=== PATIENT | female | born 1975 | race African-American/Black ===

== ENCOUNTER 2016-08-16 13:52 | Inpatient (IN) | payer MEDICAID ==
[~2016-08-16] VITALS: Ht 160 cm; Wt 59.0 kg
[2016-08-16] MEDS ORDERED: SPIRONOLACTONE1 EACH ORAL (14:23)
[2016-08-16] MEDS ORDERED: ATORVASTATIN CA40 MG ORAL (14:23)
[2016-08-16] MEDS ORDERED: BUPROPION HCL150 M3 ORAL (14:28)
[2016-08-16] MEDS ORDERED: BUPROPION HCL100 MG ORAL (14:28)
[2016-08-16] MEDS ORDERED: LASIX20 M1 ORAL (14:28)
[2016-08-16] MEDS ORDERED: LISINOPRIL20 MG ORAL (14:38)
[2016-08-16] MEDS ORDERED: CARVEDILOL3.125 MG ORAL (14:39)
[2016-08-16] MEDS ORDERED: ISOSORBIDE MONO30 M1 PO (14:39)
[2016-08-16] MEDS ORDERED: PANTOPRAZOLE SO40 MG ORAL (14:39)
[2016-08-16] MEDS ORDERED: WARFARIN SODIUM5 MG ORAL (14:39)
[2016-08-16 14:45] VITALS: BP 124/87
[2016-08-16 14:57] LABS: BASOPHILS % (AUTO) 1.4 % (0.0-2.0); EOSINOPHILS % (AUTO) 0.1 % (0.0-3.0); LYMPHOCYTES % (AUTO) 26.7 % (20.0-45.0); MEAN CORPUSCULAR HEMOGLOBIN 27.6 PG (27.0-31.0); MEAN CORPUSCULAR HGB CONC 31.8 G/DL (32.0-36.0); MEAN CORPUSCULAR VOLUME 87 FL (80-99); MEAN PLATELET VOLUME 8.1 FL (6.5-10.1); NEUTROPHILS % (AUTO) 62.9 % (45.0-75.0); PLATELET COUNT 177 K/UL (150-450); RED BLOOD COUNT 4.37 M/UL (4.20-5.40); RED CELL DISTRIBUTION WIDTH 18.3 % (11.6-14.8); WHITE BLOOD COUNT 4.9 K/UL (4.8-10.8)
[2016-08-16 14:58] LABS: INR 1.7 (0.9-1.1); PROTHROMBIN TIME 17.4 SEC (9.30-11.50)
[2016-08-16 15:07] LABS: ALANINE AMINOTRANSFERASE 39 U/L (3-33); ALBUMIN/GLOBULIN RATIO 1.1 (1.0-2.7); ANION GAP 21 (5-15); ASPARTATE AMINO TRANSFERASE 24 U/L (5-40); CALCIUM 9.2 mg/dL (8.6-10.2); CARBON DIOXIDE 21 mEQ/L (20-30); CHLORIDE 97 mEQ/L (98-107); CREATININE 1.1 mg/dL (0.5-0.9); HEMOLYSIS 4; LIPASE 22 U/L (< 60); SODIUM 139 mEQ/L (135-145); TOTAL PROTEIN 7.2 g/dL (6.6-8.7)
--- NOTE | 2016-08-16 15:09 | Emergency Room Report ---
History of Present Illness General Chief Complaint: Abdominal Pain Source: Patient, EMS Present Illness HPI 41 YO F presents with intemittent sharp, michelle-umbilical, non-radiating pain, 7/ 10 for 3 days. Associated with nausea, relieved with vomiting. No fever/chills , diarrhea, urinary complaints. hasnt been able to take coumadin or other meds since. Denies history of kidney stones. Denies chest pain, SOB, pleuritic chest pain. Allergies: Coded Allergies: PENICILLINS (Verified Allergy, Unknown, 08/16/16) Patient History Past Medical History: other - Blood clots in the "heart, neck, abdomen" Past Surgical History: none Pertinent Family History: none Social History: Denies: alcohol use, drug use, smoking Last Menstrual Period: 08/10/2015 Now: No Immunizations: UTD Reviewed Nursing Documentation: PMH: Agreed, PSxH: Agreed Nursing Documentation-PMH Past Medical History: No History, Except For Hx Hypertension: Yes Review of Systems All Other Systems: negative except mentioned in HPI Physical Exam Vital Signs Date Time Temp Pulse Resp B/P Pulse Ox O2 Delivery O2 Flow Rate FiO2 08/16/16 13:57 98.2 66 16 148/92 99 Room Air Sp02 EP Interpretation: reviewed, abnormal General Appearance: normal inspection, well appearing, no apparent distress, alert, GCS 15, non-toxic Head: normocephalic, atraumatic Eyes: bilateral eye EOMI, bilateral eye PERRL ENT: normal ENT inspection, hearing grossly normal, normal voice Neck: normal inspection, full range of motion, supple, no bony tend Respiratory: normal inspection, lungs clear, normal breath sounds, no rhonchi, no respiratory distress, no retraction, no accessory muscle use, no wheezing Cardiovascular #1: regular rate, rhythm, no edema, tachycardia Gastrointestinal: normal inspection, normal bowel sounds, non tender, soft, no guarding, no hernia Genitourinary: no CVA tenderness Musculoskeletal: normal inspection, back normal, normal range of motion, Camilo' s Sign negative Neurologic: normal inspection, alert, oriented x3, responsive, quality assistant III-XII nml as tested, motor strength/tone normal, speech normal Psychiatric: normal inspection, judgement/insight normal, mood/affect normal Skin: normal inspection, normal color, no rash Medical Decision Making Diagnostic Impression: Primary Impression: Abdominal pain Qualified Codes: R10.33 - Periumbilical pain Additional Impressions: ROSY (acute kidney injury) Elevated troponin ER Course Labs: Normal H&H. No leuks. Elevated total bili, AST. Elevated trop 0.43. Serum Cr 1.1 UA: Patient has not given urine INR 1.7 ECG is sinus tachy with PVCs CTAP: no acute abd/pelvic pathology. Incidental right ovarian mass vs fibroid. A: ?NSTEMI. ECG is Tachy with PVCs. No ischemia. Question NSTEMI given 3 days of symptoms, elevated serumCr. Will need serial trop. No chest pain or SOB Endorsed to Dr Delcid for tele admission at 5pm EKG Diagnostic Results Rate: tachycardiac, other - isolated TWI in v6 Rhythm: NSR ST Segments: no acute changes ASA given to the pt in ED: Yes Rhythm Strip Diag. Results EP Interpretation: yes Rate: 110 Rhythm: NSR, no ectopy, other - PVCs Chest X-Ray Diagnostic Results EP Interpretation: Yes Findings: no consolidation, no effusion, no pneumothorax, no acute cardiopulmonary disease Number of Views: 1 Last Vital Signs Date Time Temp Pulse Resp B/P Pulse Ox O2 Delivery O2 Flow Rate FiO2 08/16/16 13:57 98.2 66 16 148/92 99 Room Air Status: improved Disposition: ADMITTED INPATIENT Condition: Serious ANGELITA MIMS M.D. Aug 16, 2016 15:09
[2016-08-16 15:13] LABS: GLOMERULAR FILTRATION RATE > 60 mL/min (>60)
[2016-08-16] MEDS ORDERED: Famotidine 20 MG/ 2ML VIAL IVP ONE (15:15)
[2016-08-16 15:31] LABS: BILIRUBIN,DIRECT 0.3 mg/dL (0.1-0.3)
[2016-08-16 16:06] LABS: TROPONIN I 0.43 ng/mL (<=0.30)
[2016-08-16] MEDS: Morphine Sulfate 2mg/ml Inj IVP ONE ×2 (16:15→16:43)
[2016-08-16 17:20] VITALS: BP 130/96
[2016-08-16] MEDS ORDERED: Ketorolac 30mg Inj IV PRN (18:00)
[2016-08-16] MEDS ORDERED: DuoNeb 0.5-3(2.5)mg/3ml neb HHN PRN (18:00)
[2016-08-16] MEDS ORDERED: Enalaprilat 2.5mg/2ml Inj IV PRN (18:00)
[2016-08-16] MEDS ORDERED: Miralax 17gm pkt ORAL PRN (18:00)
[2016-08-16] MEDS ORDERED: Diltiazem 25mg/5ml IV PRN (18:00)
[2016-08-16] MEDS ORDERED: Nitroglycerin Subl 0.4mg tab (Bottle Of 25) SL PRN (18:15)
[2016-08-16] MEDS: Morphine Sulfate 2mg/ml Inj IVP PRN (19:50)
[2016-08-16 20:00] VITALS: BP 120/88
[2016-08-16] MEDS: Heparin 5000 units/ml inj SUBQ SCH (21:00)
[2016-08-16] MEDS: Atorvastatin 80mg tab ORAL SCH (21:27)
[2016-08-16 21:47] LABS: TROPONIN I 0.51 ng/mL (<=0.30)
[2016-08-17] VITALS: BP 114/76
[2016-08-17 02:16] LABS: APPEARANCE,URINE CLEAR; KETONES,URINE NEGATIVE (NEGATIVE); LEUKOCYTE ESTERASE ,URINE 1+ (NEGATIVE); NITRITE,URINE NEGATIVE (NEGATIVE); PH,URINE 5 (4.5-8.0); PROTEIN,URINE 3+ (NEGATIVE); UROBILINOGEN,URINE 1 MG/DL (0.0-1.0)
[2016-08-17 02:58] LABS: BACTERIA,URINE FEW /HPF; SQUAMOUS EPITHELIAL CELL,UR MODERATE /LPF (NONE/OCC)
[2016-08-17 03:02] LABS: ICTOTEST NEGATIVE
[2016-08-17 04:00] VITALS: BP 108/63
[2016-08-17 07:38] LABS: BASOPHILS % (AUTO) 1.2 % (0.0-2.0); LYMPHOCYTES % (AUTO) 45.1 % (20.0-45.0); MEAN CORPUSCULAR HEMOGLOBIN 26.6 PG (27.0-31.0); MEAN CORPUSCULAR HGB CONC 30.9 G/DL (32.0-36.0); MEAN CORPUSCULAR VOLUME 86 FL (80-99); MEAN PLATELET VOLUME 8.7 FL (6.5-10.1); MONOCYTES % (AUTO) 7.3 % (1.0-10.0); NEUTROPHILS % (AUTO) 45.4 % (45.0-75.0); PLATELET COUNT 160 K/UL (150-450); RED BLOOD COUNT 4.11 M/UL (4.20-5.40); RED CELL DISTRIBUTION WIDTH 18.4 % (11.6-14.8); WHITE BLOOD COUNT 3.9 K/UL (4.8-10.8)
[2016-08-17] MEDS: Morphine Sulfate 2mg/ml Inj IVP PRN (07:46)
[2016-08-17 07:56] LABS: INR 1.4 (0.9-1.1); PROTHROMBIN TIME 14.7 SEC (9.30-11.50)
[2016-08-17 08:13] LABS: CRP QUANT 1.6 mg/dL (< 0.5)
[2016-08-17 08:18] LABS: THYROID STIMULATING HORMONE 0.882 uIU/mL (0.300-4.500)
[2016-08-17 08:23] VITALS: BP 108/85
--- NOTE | 2016-08-17 08:30 | Diagnostic Imaging Report ---
Clinical Indication: Intermittent sharp periumbilical nonradiating pain for 3 days, associated with nausea and vomiting Technique: No oral contrast utilized, per emergency room physician request IV administration nonionic contrast. Venous phase spiral acquisition obtained through the abdomen and pelvis. Multiplanar reconstructions were generated. Total dose length product 703 mGycm. CTDIvol(s) 15 mGy Comparison: None Findings: There is a mass with central calcification in the right adnexal region. This measures 6 x 3.6 cm, is solid. This appears to be connected to the right side of the uterine fundus and likely represents an exophytic uterine fibroid, although an ovarian mass as etiology of this finding cannot completely ruled out. It is uncertain whether a separate ovary is seen on the right. The appendix is normal. There is no evidence of diverticulosis or diverticulitis. No small bowel distention. No free or loculated intraperitoneal air or fluid. The distal esophagus, stomach, duodenum are unremarkable. The liver, gallbladder, bile ducts, pancreas, spleen, are unremarkable. There are bilateral intrarenal calyceal calculi. One on the right measures 2 mm diameter. One on the left measures 5 mm diameter. No evidence of hydronephrosis or hydroureter. There is a small exophytic subcentimeter low-attenuation lesion in the upper pole of the right kidney which is too small to characterize. The bladder is unremarkable. There is a small right pleural effusion. The heart is enlarged. Impression: Small right pleural effusion. 6 x 3.6 cm mass in the right adnexal region. Possibly but not definitively an exophytic uterine fibroid, but could represent a solid ovarian mass.. Further evaluation with pelvic and endovaginal sonography is recommended No acute abdominal or pelvic abnormality Bilateral nonobstructive intrarenal calculi. Negative for evidence of hydronephrosis or obstructive uropathy Cardiomegaly The CT scanner at [facility] is accredited by the [employer] and the scans are performed using protocols designed to limit radiation exposure to as low as reasonably achievable to attain images of sufficient resolution adequate for diagnostic evaluation.
[2016-08-17] MEDS: Aspirin Baby 81mg ORAL SCH (08:43)
[2016-08-17] MEDS: Lisinopril 10mg tab ORAL SCH (08:43)
[2016-08-17] MEDS: Heparin 5000 units/ml inj SUBQ SCH (08:46)
[2016-08-17 08:57] LABS: TROPONIN I 0.54 ng/mL (<=0.30)
[2016-08-17] MEDS ORDERED: Imdur 30mg tab ORAL SCH (09:00)
--- NOTE | 2016-08-17 10:58 | Diagnostic Imaging Report ---
Indication: PAIN Technique: One view of the chest Comparison: none Findings: Heart is enlarged. The lungs and pleural spaces are clear. Impression: Cardiomegaly. No acute process
[2016-08-17 11:39] VITALS: BP 100/65
--- NOTE | 2016-08-17 13:12 | History and Physical ---
History of Present Illness General Date patient seen: Aug 17, 2016 Reason for Hospitalization: Abdominal Pain Present Illness HPI 41 year old female with hx of cardiomyopathy presented with intermittent sharp, michelle-umbilical, non-radiating pain for 3 days. Associated with nausea, relieved with vomiting. No fever/chills, diarrhea, urinary complaints. she hasn't been able to take coumadin or other meds since. Allergies: Coded Allergies: PENICILLINS (Verified Allergy, Unknown, 08/16/16) Medication History Scheduled Atorvastatin Calcium* (Atorvastatin Calcium*), 80 MG ORAL BEDTIME, (Reported) Bupropion Hcl* (Bupropion Hcl*), 100 MG ORAL THREE TIMES A DAY, (Reported) Bupropion Hcl* (Bupropion Hcl Sr*), 150 MG ORAL DAILY, (Reported) Carvedilol* (Carvedilol*), 3.125 MG ORAL EVERY 12 HOURS, (Reported) Furosemide* (Lasix*), 20 MG ORAL DAILY, (Reported) Isosorbide Mononitrate (Isosorbide Mononitrate Er), 30 MG PO DAILY, (Reported) Lisinopril (Lisinopril*), 10 MG ORAL DAILY, (Reported) Pantoprazole* (Pantoprazole*), 40 MG ORAL DAILY, (Reported) Spironolact/Hydrochlorothiazid (Spironolactone-Hctz 25-25 Tab), 1 TAB ORAL DAILY , (Reported) Warfarin Sod* (Warfarin Sod*), 5 MG ORAL DAILY, (Reported) Patient History Healthcare decision maker pt alert and oriented Resuscitation status Full Code Advanced Directive on File No Past Medical/Surgical History Past Medical/Surgical History: (1) Cardiomyopathy Review of Systems All Other Systems: negative except mentioned in HPI Physical Exam General Appearance: cachetic HEENT: normocephalic, atraumatic Neck: non-tender, normal alignment Respiratory/Chest: chest wall non-tender, lungs clear Breasts: no masses Abdomen: normal bowel sounds, non tender Genitourinary/Rectal: normal genital exam, normal rectal exam Last 24 Hour Vital Signs Date Time Temp Pulse Resp B/P Pulse Ox O2 Delivery O2 Flow Rate FiO2 08/17/16 11:39 98.1 79 18 100/65 97 Room Air 08/17/16 08:43 108/85 08/17/16 08:43 108/85 08/17/16 08:43 87 108/85 08/17/16 08:23 98.2 87 18 108/85 96 Room Air 08/17/16 04:00 80 08/17/16 04:00 98.2 20 108/63 100 Room Air 08/17/16 00:00 95 08/17/16 00:00 97.5 98 20 114/76 100 Room Air 08/16/16 21:27 101 120/88 08/16/16 20:00 101 08/16/16 20:00 108 08/16/16 20:00 97.9 101 20 120/88 100 Room Air 08/16/16 17:20 56 18 130/96 100 Room Air 08/16/16 17:01 115 16 125/93 100 Room Air 08/16/16 15:31 108 124/87 08/16/16 14:45 108 18 124/87 95 Room Air 08/16/16 13:57 98.2 66 16 148/92 99 Room Air Intake and Output 08/16/16 08/17/16 19:00 07:00 Intake Total 0 ml 360 ml Balance 0 ml 360 ml Intake Oral 0 ml 120 ml Other 240 ml Laboratory Tests Test 08/16/16 14:30 08/16/16 21:00 08/17/16 01:00 08/17/16 06:40 White Blood Count 4.9 K/UL (4.8-10.8) 3.9 K/UL (4.8-10.8) L Red Blood Count 4.37 M/UL (4.20-5.40) 4.11 M/UL (4.20-5.40) L Hemoglobin 12.1 G/DL (12.0-16.0) 10.9 G/DL (12.0-16.0) L Hematocrit 37.9 % (37.0-47.0) 35.4 % (37.0-47.0) L Mean Corpuscular Volume 87 FL (80-99) 86 FL (80-99) Mean Corpuscular Hemoglobin 27.6 PG (27.0-31.0) 26.6 PG (27.0-31.0) L Mean Corpuscular Hemoglobin Concent 31.8 G/DL (32.0-36.0) L 30.9 G/DL (32.0-36.0) L Red Cell Distribution Width 18.3 % (11.6-14.8) H 18.4 % (11.6-14.8) H Platelet Count 177 K/UL (150-450) 160 K/UL (150-450) Mean Platelet Volume 8.1 FL (6.5-10.1) 8.7 FL (6.5-10.1) Neutrophils (%) (Auto) 62.9 % (45.0-75.0) 45.4 % (45.0-75.0) Lymphocytes (%) (Auto) 26.7 % (20.0-45.0) 45.1 % (20.0-45.0) H Monocytes (%) (Auto) 9.0 % (1.0-10.0) 7.3 % (1.0-10.0) Eosinophils (%) (Auto) 0.1 % (0.0-3.0) 1.0 % (0.0-3.0) Basophils (%) (Auto) 1.4 % (0.0-2.0) 1.2 % (0.0-2.0) Prothrombin Time 17.4 SEC (9.30-11.50) H 14.7 SEC (9.30-11.50) H Prothromb Time International Ratio 1.7 (0.9-1.1) H 1.4 (0.9-1.1) H Activated Partial Thromboplast Time 27 SEC (23-33) 28 SEC (23-33) Sodium Level 139 mEQ/L (135-145) Potassium Level 4.0 mEQ/L (3.4-4.9) Chloride Level 97 mEQ/L (98-107) L Carbon Dioxide Level 21 mEQ/L (20-30) Anion Gap 21 (5-15) H Blood Urea Nitrogen 21 mg/dL (7-23) Creatinine 1.1 mg/dL (0.5-0.9) H Estimat Glomerular Filtration Rate > 60 mL/min (>60) Glucose Level 119 mg/dL (74-106) H Calcium Level 9.2 mg/dL (8.6-10.2) Total Bilirubin 1.5 mg/dL (0.0-1.2) H Direct Bilirubin 0.3 mg/dL (0.1-0.3) Aspartate Amino Transf (AST/SGOT) 24 U/L (5-40) Alanine Aminotransferase (ALT/SGPT) 39 U/L (3-33) H Alkaline Phosphatase 126 U/L (35-104) H Troponin I 0.43 ng/mL (<=0.30) *H 0.51 ng/mL (<=0.30) *H 0.54 ng/mL (<=0.30) *H Total Protein 7.2 g/dL (6.6-8.7) Albumin 3.9 g/dL (3.5-5.2) Globulin 3.3 g/dL Albumin/Globulin Ratio 1.1 (1.0-2.7) Lipase 22 U/L (< 60) Urine Color Kellie Urine Appearance Clear Urine pH 5 (4.5-8.0) Urine Specific [place] 1.020 (1.005-1.035) Urine Protein 3+ (NEGATIVE) H Urine Glucose (UA) Negative (NEGATIVE) Urine Ketones Negative (NEGATIVE) Urine Occult Blood 4+ (NEGATIVE) H Urine Nitrite Negative (NEGATIVE) Urine Bilirubin Negative (NEGATIVE) Urine Ictotest Negative Urine Urobilinogen 1 MG/DL (0.0-1.0) H Urine Leukocyte Esterase 1+ (NEGATIVE) H Urine RBC 10-15 /HPF (0 - 2) H Urine WBC 5-10 /HPF (0 - 2) H Urine Squamous Epithelial Cells Moderate /LPF (NONE/OCC) H Urine Bacteria Few /HPF (NONE) Urine HCG, Qualitative Negative C-Reactive Protein, Quantitative 1.6 mg/dL (< 0.5) H Triglycerides Level 70 mg/dL (< 150) Cholesterol Level 151 mg/dL (< 200) LDL Cholesterol 107 mg/dL (60-99) H HDL Cholesterol 30 mg/dL (> 60) Cholesterol/HDL Ratio 5.0 (3.3-4.4) H Thyroid Stimulating Hormone (TSH) 0.882 uIU/mL (0.300-4.500) Height (Feet): 5 Height (Inches): 3.00 Weight (Pounds): 130 Medications Current Medications Medications (Trade) Dose Ordered Sig/Frantz Route PRN Reason Start Time Stop Time Status Last Admin Dose Admin Acetaminophen (Tylenol) 650 mg Q4H PRN ORAL T>100.5 08/16/16 18:00 09/15/16 17:59 Albuterol/ Ipratropium (DuoNeb 0.5-3(2.5)mg/3ml) 3 ml Q4H PRN HHN Shortness of Breath 08/16/16 18:00 08/21/16 17:59 Aspirin (ASA) 162 mg DAILY ORAL 08/17/16 09:00 09/16/16 08:59 08/17/16 08:43 Atorvastatin Calcium (Lipitor) 80 mg BEDTIME ORAL 08/16/16 21:00 09/15/16 20:59 08/16/16 21:27 Bupropion HCl (Wellbutrin) 100 mg THREE TIMES A DAY ORAL 08/16/16 20:00 09/15/16 19:59 08/17/16 08:43 Carvedilol (Coreg) 3.125 mg EVERY 12 HOURS ORAL 08/16/16 21:00 09/15/16 20:59 08/17/16 08:43 Diltiazem HCl (Cardizem) 10 mg EVERY HOUR PRN IV heart rate more than 120 08/16/16 18:00 09/15/16 17:59 Enalaprilat (Vasotec) 2.5 mg Q6H PRN IV sbp more than 160 08/16/16 18:00 09/15/16 17:59 Heparin Sodium (Porcine) (Heparin 5000 units/ml) 5,000 units EVERY 12 HOURS SUBQ 08/16/16 21:00 09/15/16 20:59 Isosorbide Mononitrate (Imdur) 30 mg DAILY ORAL 08/17/16 09:00 09/16/16 08:59 08/17/16 08:43 Lisinopril (Zestril) 10 mg DAILY ORAL 08/17/16 09:00 09/16/16 08:59 08/17/16 08:43 Morphine Sulfate (Morphine Sulfate) 2 mg Q4H PRN IVP Severe Pain (Pain Scale 7-10) 08/16/16 18:00 08/23/16 17:59 08/17/16 07:46 Nitroglycerin (Ntg) 0.4 mg Q5MIN X 3 DOSES PRN SL Prn Chest Pain 08/16/16 18:15 09/15/16 18:14 Ondansetron HCl (Zofran) 4 mg Q6H PRN IVP Nausea & Vomiting 08/16/16 18:00 09/15/16 17:59 Pantoprazole (Protonix) 40 mg DAILY ORAL 08/17/16 09:00 09/16/16 08:59 08/17/16 08:43 Polyethylene Glycol (Miralax) 17 gm DAILYPRN PRN ORAL Constipation 08/16/16 18:00 09/15/16 17:59 Temazepam (Restoril) 15 mg HSPRN PRN ORAL Insomnia 08/16/16 21:00 08/23/16 20:59 Assessment/Plan Problem List: (1) Abdominal pain ICD Codes: R10.9 - Unspecified abdominal pain SNOMED: 59217545 Qualifiers: Qualified Codes: R10.33 - Periumbilical pain (2) Cardiomyopathy ICD Codes: I42.9 - Cardiomyopathy, unspecified SNOMED: 07199010 (3) Elevated troponin ICD Codes: R79.89 - Other specified abnormal findings of blood chemistry SNOMED: 135176286, 904383065 (4) ROSY (acute kidney injury) ICD Codes: N17.9 - Acute kidney failure, unspecified SNOMED: 65304506 Assessment/Plan 2decho serial ekg troponin mass on CT abdomen needs further work up. will send for tumor markers. ADITI ANDERSON Aug 17, 2016 13:12
--- NOTE | 2016-08-17 13:53 | GI Initial Consult Note ---
History of Present Illness General Date patient seen: Aug 17, 2016 Time patient seen: 10:00 Reason for Hospitalization: Abdominal Pain Referring physician: ADITI LEIJA Reason for Consultation: ABDOMINAL PAIN Present Illness HPI 41 YO F presents with intemittent sharp, michelle-umbilical, non-radiating pain, 7/ 10 for 3 days. Associated with nausea, relieved with vomiting. No fever/chills , diarrhea, urinary complaints. hasnt been able to take coumadin or other meds since. Denies history of kidney stones. Denies chest pain, SOB, pleuritic chest pain. GI CONSULT: HPI as noted above. GI consulted for lower abdominal pain. Pt seen on floor, awake A&Ox4 NAD with no active s/sx of N/V. Pt tolerating regular diet. She presents today with anemia, and abnormal LFTs. APCT shows no acute abdominal or pelvic abnormality, see full report below. Service Date: 08/16/16 Procedure: CT Abdomen Pelvis w/Contrast Clinical Indication: Intermittent sharp periumbilical nonradiating pain for 3 days, associated with nausea and vomiting Findings: There is a mass with central calcification in the right adnexal region. This measures 6 x 3.6 cm, is solid. This appears to be connected to the right side of the uterine fundus and likely represents an exophytic uterine fibroid, although an ovarian mass as etiology of this finding cannot completely ruled out. It is uncertain whether a separate ovary is seen on the right. The appendix is normal. There is no evidence of diverticulosis or diverticulitis. No small bowel distention. No free or loculated intraperitoneal air or fluid. The distal esophagus, stomach, duodenum are unremarkable. The liver, gallbladder, bile ducts, pancreas, spleen, are unremarkable. There are bilateral intrarenal calyceal calculi. One on the right measures 2 mm diameter. One on the left measures 5 mm diameter. No evidence of hydronephrosis or hydroureter. There is a small exophytic subcentimeter low-attenuation lesion in the upper pole of the right kidney which is too small to characterize. The bladder is unremarkable. There is a small right pleural effusion. The heart is enlarged. Impression: Small right pleural effusion. 6 x 3.6 cm mass in the right adnexal region. Possibly but not definitively an exophytic uterine fibroid, but could represent a solid ovarian mass.. Further evaluation with pelvic and endovaginal sonography is recommended No acute abdominal or pelvic abnormality Bilateral nonobstructive intrarenal calculi. Negative for evidence of hydronephrosis or obstructive uropathy Cardiomegaly Home Meds Reported Medications Pantoprazole* (PANTOPRAZOLE*) 40 Mg Tablet.dr, 40 MG ORAL DAILY, TAB 08/16/16 Carvedilol* (CARVEDILOL*) 3.125 Mg Tablet, 3.125 MG ORAL EVERY 12 HOURS, TAB 08/16/16 Isosorbide Mononitrate (ISOSORBIDE MONONITRATE ER) 30 Mg Tab.er.24h, 30 MG PO DAILY, TAB 08/16/16 Warfarin Sod* (WARFARIN SOD*) 5 Mg Tablet, 5 MG ORAL DAILY, TAB 08/16/16 Lisinopril (LISINOPRIL*) 20 Mg Tablet, 10 MG ORAL DAILY, TAB 08/16/16 Bupropion Hcl* (BUPROPION HCL SR*) 150 Mg Tablet.er, 150 MG ORAL DAILY, TAB 08/16/16 Bupropion Hcl* (BUPROPION HCL*) 100 Mg Tablet, 100 MG ORAL THREE TIMES A DAY, TAB 08/16/16 Furosemide* (LASIX*) 20 Mg Tablet, 20 MG ORAL DAILY, TAB 08/16/16 Spironolact/Hydrochlorothiazid (SPIRONOLACTONE-HCTZ 25-25 TAB) 1 Each Tablet, 1 TAB ORAL DAILY, TAB 08/16/16 Atorvastatin Calcium* (ATORVASTATIN CALCIUM*) 40 Mg Tablet, 80 MG ORAL BEDTIME, TAB 08/16/16 Allergies: Coded Allergies: PENICILLINS (Verified Allergy, Unknown, 08/16/16) Patient History PMH Narrative Past Medical History: other - Blood clots in the "heart, neck, abdomen" Past Surgical History: none Pertinent Family History: none Social History: Denies: alcohol use, drug use, smoking Last Menstrual Period: 08/10/2015 Now: No Immunizations: UTD Reviewed Nursing Documentation: PMH: Agreed, PSxH: Agreed Nursing Documentation-PMH Past Medical History: No History, Except For Hx Hypertension: Yes Social History: Denies: alcohol use, drug use, other, smoking Review of Systems All Other Systems: negative except mentioned in HPI Physical Exam Vital Signs Date Time Temp Pulse Resp B/P Pulse Ox O2 Delivery O2 Flow Rate FiO2 08/16/16 13:57 98.2 66 16 148/92 99 Room Air Sp02 EP Interpretation: reviewed Labs Laboratory Tests Test 08/16/16 14:30 08/16/16 21:00 08/17/16 01:00 08/17/16 06:40 White Blood Count 4.9 K/UL (4.8-10.8) 3.9 K/UL (4.8-10.8) L Red Blood Count 4.37 M/UL (4.20-5.40) 4.11 M/UL (4.20-5.40) L Hemoglobin 12.1 G/DL (12.0-16.0) 10.9 G/DL (12.0-16.0) L Hematocrit 37.9 % (37.0-47.0) 35.4 % (37.0-47.0) L Mean Corpuscular Volume 87 FL (80-99) 86 FL (80-99) Mean Corpuscular Hemoglobin 27.6 PG (27.0-31.0) 26.6 PG (27.0-31.0) L Mean Corpuscular Hemoglobin Concent 31.8 G/DL (32.0-36.0) L 30.9 G/DL (32.0-36.0) L Red Cell Distribution Width 18.3 % (11.6-14.8) H 18.4 % (11.6-14.8) H Platelet Count 177 K/UL (150-450) 160 K/UL (150-450) Mean Platelet Volume 8.1 FL (6.5-10.1) 8.7 FL (6.5-10.1) Neutrophils (%) (Auto) 62.9 % (45.0-75.0) 45.4 % (45.0-75.0) Lymphocytes (%) (Auto) 26.7 % (20.0-45.0) 45.1 % (20.0-45.0) H Monocytes (%) (Auto) 9.0 % (1.0-10.0) 7.3 % (1.0-10.0) Eosinophils (%) (Auto) 0.1 % (0.0-3.0) 1.0 % (0.0-3.0) Basophils (%) (Auto) 1.4 % (0.0-2.0) 1.2 % (0.0-2.0) Prothrombin Time 17.4 SEC (9.30-11.50) H 14.7 SEC (9.30-11.50) H Prothromb Time International Ratio 1.7 (0.9-1.1) H 1.4 (0.9-1.1) H Activated Partial Thromboplast Time 27 SEC (23-33) 28 SEC (23-33) Sodium Level 139 mEQ/L (135-145) Potassium Level 4.0 mEQ/L (3.4-4.9) Chloride Level 97 mEQ/L (98-107) L Carbon Dioxide Level 21 mEQ/L (20-30) Anion Gap 21 (5-15) H Blood Urea Nitrogen 21 mg/dL (7-23) Creatinine 1.1 mg/dL (0.5-0.9) H Estimat Glomerular Filtration Rate > 60 mL/min (>60) Glucose Level 119 mg/dL (74-106) H Calcium Level 9.2 mg/dL (8.6-10.2) Total Bilirubin 1.5 mg/dL (0.0-1.2) H Direct Bilirubin 0.3 mg/dL (0.1-0.3) Aspartate Amino Transf (AST/SGOT) 24 U/L (5-40) Alanine Aminotransferase (ALT/SGPT) 39 U/L (3-33) H Alkaline Phosphatase 126 U/L (35-104) H Troponin I 0.43 ng/mL (<=0.30) *H 0.51 ng/mL (<=0.30) *H 0.54 ng/mL (<=0.30) *H Total Protein 7.2 g/dL (6.6-8.7) Albumin 3.9 g/dL (3.5-5.2) Globulin 3.3 g/dL Albumin/Globulin Ratio 1.1 (1.0-2.7) Lipase 22 U/L (< 60) Urine Color Kellie Urine Appearance Clear Urine pH 5 (4.5-8.0) Urine Specific [place] 1.020 (1.005-1.035) Urine Protein 3+ (NEGATIVE) H Urine Glucose (UA) Negative (NEGATIVE) Urine Ketones Negative (NEGATIVE) Urine Occult Blood 4+ (NEGATIVE) H Urine Nitrite Negative (NEGATIVE) Urine Bilirubin Negative (NEGATIVE) Urine Ictotest Negative Urine Urobilinogen 1 MG/DL (0.0-1.0) H Urine Leukocyte Esterase 1+ (NEGATIVE) H Urine RBC 10-15 /HPF (0 - 2) H Urine WBC 5-10 /HPF (0 - 2) H Urine Squamous Epithelial Cells Moderate /LPF (NONE/OCC) H Urine Bacteria Few /HPF (NONE) Urine HCG, Qualitative Negative C-Reactive Protein, Quantitative 1.6 mg/dL (< 0.5) H Triglycerides Level 70 mg/dL (< 150) Cholesterol Level 151 mg/dL (< 200) LDL Cholesterol 107 mg/dL (60-99) H HDL Cholesterol 30 mg/dL (> 60) Cholesterol/HDL Ratio 5.0 (3.3-4.4) H CA 15-3 Antigen Pending CA 19-9 Antigen 9.40 U/mL (< 37) CA 27.29 Pending CA 125 Antigen Pending Thyroid Stimulating Hormone (TSH) 0.882 uIU/mL (0.300-4.500) General Appearance: well appearing, no apparent distress, alert Head: normocephalic EENT: PERRL/EOMI, TMs normal Neck: normal inspection, full range of motion, supple Respiratory: normal inspection, normal breath sounds, no respiratory distress Cardiovascular: normal rate Gastrointestinal: normal inspection, non tender, soft Rectal: deferred Musculoskeletal: normal inspection, back normal Neurologic: normal inspection, alert, oriented x3, responsive Psychiatric: normal inspection, judgement/insight normal, memory normal Skin: normal inspection, normal color, no rash, warm/dry Lymphatic: normal inspection, no adenopathy Current Medications Current Medications Medications (Trade) Dose Ordered Sig/Frantz Route PRN Reason Start Time Stop Time Status Last Admin Dose Admin Acetaminophen (Tylenol) 650 mg Q4H PRN ORAL T>100.5 08/16/16 18:00 09/15/16 17:59 Albuterol/ Ipratropium (DuoNeb 0.5-3(2.5)mg/3ml) 3 ml Q4H PRN HHN Shortness of Breath 08/16/16 18:00 08/21/16 17:59 Aspirin (ASA) 162 mg DAILY ORAL 08/17/16 09:00 09/16/16 08:59 08/17/16 08:43 Atorvastatin Calcium (Lipitor) 80 mg BEDTIME ORAL 08/16/16 21:00 09/15/16 20:59 08/16/16 21:27 Bupropion HCl (Wellbutrin) 100 mg THREE TIMES A DAY ORAL 08/16/16 20:00 09/15/16 19:59 08/17/16 13:25 Carvedilol (Coreg) 3.125 mg EVERY 12 HOURS ORAL 08/16/16 21:00 09/15/16 20:59 08/17/16 08:43 Diltiazem HCl (Cardizem) 10 mg EVERY HOUR PRN IV heart rate more than 120 08/16/16 18:00 09/15/16 17:59 Enalaprilat (Vasotec) 2.5 mg Q6H PRN IV sbp more than 160 08/16/16 18:00 09/15/16 17:59 Isosorbide Mononitrate (Imdur) 30 mg DAILY ORAL 08/17/16 09:00 09/16/16 08:59 08/17/16 08:43 Lisinopril (Zestril) 10 mg DAILY ORAL 08/17/16 09:00 09/16/16 08:59 08/17/16 08:43 Morphine Sulfate (Morphine Sulfate) 2 mg Q4H PRN IVP Severe Pain (Pain Scale 7-10) 08/16/16 18:00 08/23/16 17:59 08/17/16 07:46 Nitroglycerin (Ntg) 0.4 mg Q5MIN X 3 DOSES PRN SL Prn Chest Pain 08/16/16 18:15 09/15/16 18:14 Ondansetron HCl (Zofran) 4 mg Q6H PRN IVP Nausea & Vomiting 08/16/16 18:00 09/15/16 17:59 08/17/16 13:25 Pantoprazole (Protonix) 40 mg DAILY ORAL 08/17/16 09:00 09/16/16 08:59 08/17/16 08:43 Polyethylene Glycol (Miralax) 17 gm DAILYPRN PRN ORAL Constipation 08/16/16 18:00 09/15/16 17:59 Temazepam (Restoril) 15 mg HSPRN PRN ORAL Insomnia 08/16/16 21:00 08/23/16 20:59 Warfarin Sodium (Coumadin per pharmacy) 1 ea DAILY PRN MISC Per rx protocol 08/17/16 13:15 09/16/16 13:14 UNV GI: Plan Problems: (1) Anemia (2) LFTs abnormal (3) Elevated troponin (4) Abdominal pain Plan elevated troponin >> will require cardiac clearance prior any GI proceduers APCT reviewed >> No acute abdominal or pelvic abnormality, see full report. 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 Gauthier. Thank you for referring this patient, we will follow. Theresa Reynolds N.P. Aug 17, 2016 13:53
[2016-08-17 16:13] VITALS: BP 106/69
[2016-08-17] MEDS ORDERED: Warfarin Sodium 7.5mg ORAL ONE (17:00)
--- NOTE | 2016-08-17 19:12 | Cardiology Progress Note ---
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 [facility] dc she got 8 mg but the dcd her with mg she never fu with her pmd as instructed to get inr checked i hae recommneded that hs mix that darryl whe nshe get out of [place] hsotpial lasix acei bb [id number] Objective Last 24 Hour Vital Signs Date Time Temp Pulse Resp B/P Pulse Ox O2 Delivery O2 Flow Rate FiO2 08/17/16 16:13 97.0 86 18 106/69 99 Room Air 08/17/16 12:00 81 08/17/16 11:39 98.1 79 18 100/65 97 Room Air 08/17/16 08:43 108/85 08/17/16 08:43 108/85 08/17/16 08:43 87 108/85 08/17/16 08:23 98.2 87 18 108/85 96 Room Air 08/17/16 08:00 96 08/17/16 04:00 80 08/17/16 04:00 98.2 20 108/63 100 Room Air 08/17/16 00:00 95 08/17/16 00:00 97.5 98 20 114/76 100 Room Air 08/16/16 21:27 101 120/88 08/16/16 20:00 101 08/16/16 20:00 108 08/16/16 20:00 97.9 101 20 120/88 100 Room Air Intake and Output 08/16/16 08/17/16 19:00 07:00 Intake Total 0 ml 360 ml Balance 0 ml 360 ml Intake Oral 0 ml 120 ml Other 240 ml Laboratory Tests Test 08/16/16 21:00 08/17/16 01:00 08/17/16 06:40 Troponin I 0.51 ng/mL (<=0.30) *H 0.54 ng/mL (<=0.30) *H Urine Color Kellie Urine Appearance Clear Urine pH 5 (4.5-8.0) Urine Specific [place] 1.020 (1.005-1.035) Urine Protein 3+ (NEGATIVE) H Urine Glucose (UA) Negative (NEGATIVE) Urine Ketones Negative (NEGATIVE) Urine Occult Blood 4+ (NEGATIVE) H Urine Nitrite Negative (NEGATIVE) Urine Bilirubin Negative (NEGATIVE) Urine Ictotest Negative Urine Urobilinogen 1 MG/DL (0.0-1.0) H Urine Leukocyte Esterase 1+ (NEGATIVE) H Urine RBC 10-15 /HPF (0 - 2) H Urine WBC 5-10 /HPF (0 - 2) H Urine Squamous Epithelial Cells Moderate /LPF (NONE/OCC) H Urine Bacteria Few /HPF (NONE) Urine HCG, Qualitative Negative White Blood Count 3.9 K/UL (4.8-10.8) L Red Blood Count 4.11 M/UL (4.20-5.40) L Hemoglobin 10.9 G/DL (12.0-16.0) L Hematocrit 35.4 % (37.0-47.0) L Mean Corpuscular Volume 86 FL (80-99) Mean Corpuscular Hemoglobin 26.6 PG (27.0-31.0) L Mean Corpuscular Hemoglobin Concent 30.9 G/DL (32.0-36.0) L Red Cell Distribution Width 18.4 % (11.6-14.8) H Platelet Count 160 K/UL (150-450) Mean Platelet Volume 8.7 FL (6.5-10.1) Neutrophils (%) (Auto) 45.4 % (45.0-75.0) Lymphocytes (%) (Auto) 45.1 % (20.0-45.0) H Monocytes (%) (Auto) 7.3 % (1.0-10.0) Eosinophils (%) (Auto) 1.0 % (0.0-3.0) Basophils (%) (Auto) 1.2 % (0.0-2.0) Prothrombin Time 14.7 SEC (9.30-11.50) H Prothromb Time International Ratio 1.4 (0.9-1.1) H Activated Partial Thromboplast Time 28 SEC (23-33) C-Reactive Protein, Quantitative 1.6 mg/dL (< 0.5) H Triglycerides Level 70 mg/dL (< 150) Cholesterol Level 151 mg/dL (< 200) LDL Cholesterol 107 mg/dL (60-99) H HDL Cholesterol 30 mg/dL (> 60) Cholesterol/HDL Ratio 5.0 (3.3-4.4) H CA 15-3 Antigen Pending CA 19-9 Antigen 9.40 U/mL (< 37) CA 27.29 Pending CA 125 Antigen Pending Thyroid Stimulating Hormone (TSH) 0.882 uIU/mL (0.300-4.500) JOAN BARRY Aug 17, 2016 19:12
[2016-08-17] MEDS ORDERED: Enoxaparin 60mg Inj SUBQ SCH (19:15)
[2016-08-17] MEDS ORDERED: Heparin 5000 units/ml inj IV ONE (19:30)
[2016-08-17] MEDS ORDERED: Heparin 25,000u/D5W 500ml 500 ML IV SCH (19:45)
[2016-08-17 19:52] LABS: BASOPHILS % (AUTO) 1.1 % (0.0-2.0); EOSINOPHILS % (AUTO) 1.4 % (0.0-3.0); LYMPHOCYTES % (AUTO) 42.6 % (20.0-45.0); MEAN CORPUSCULAR HEMOGLOBIN 27.9 PG (27.0-31.0); MEAN CORPUSCULAR HGB CONC 31.8 G/DL (32.0-36.0); MEAN CORPUSCULAR VOLUME 88 FL (80-99); MEAN PLATELET VOLUME 7.5 FL (6.5-10.1); NEUTROPHILS % (AUTO) 47.9 % (45.0-75.0); PLATELET COUNT 155 K/UL (150-450); RED BLOOD COUNT 3.84 M/UL (4.20-5.40); WHITE BLOOD COUNT 4.1 K/UL (4.8-10.8)
[2016-08-17] MEDS: Atorvastatin 80mg tab ORAL SCH (19:57)
[2016-08-17] MEDS: Spironolactone 25mg tab ORAL SCH (19:57)
[2016-08-17 20:00] VITALS: BP 101/68
[2016-08-18] VITALS: BP 115/65
[2016-08-18 02:45] LABS: BASOPHILS % (AUTO) 1.2 % (0.0-2.0); EOSINOPHILS % (AUTO) 1.3 % (0.0-3.0); MEAN CORPUSCULAR HEMOGLOBIN 27.4 PG (27.0-31.0); MEAN CORPUSCULAR HGB CONC 31.7 G/DL (32.0-36.0); MEAN CORPUSCULAR VOLUME 86 FL (80-99); MEAN PLATELET VOLUME 7.6 FL (6.5-10.1); MONOCYTES % (AUTO) 8.8 % (1.0-10.0); NEUTROPHILS % (AUTO) 44.6 % (45.0-75.0); PLATELET COUNT 166 K/UL (150-450); RED BLOOD COUNT 4.06 M/UL (4.20-5.40); RED CELL DISTRIBUTION WIDTH 18.7 % (11.6-14.8); WHITE BLOOD COUNT 3.7 K/UL (4.8-10.8)
[2016-08-18 02:55] LABS: INR 1.4 (0.9-1.1); PROTHROMBIN TIME 14.5 SEC (9.30-11.50)
[2016-08-18 03:03] LABS: ALBUMIN/GLOBULIN RATIO 1.1 (1.0-2.7); CALCIUM 8.6 mg/dL (8.6-10.2); CREATININE 1.2 mg/dL (0.5-0.9); GLOMERULAR FILTRATION RATE 59.8 mL/min (>60); MAGNESIUM 1.8 mg/dL (1.7-2.5); PHOSPHORUS 3.3 mg/dL (2.5-4.8); POTASSIUM 3.6 mEQ/L (3.4-4.9); TOTAL PROTEIN 5.7 g/dL (6.6-8.7)
[2016-08-18 03:14] LABS: TROPONIN I 0.42 ng/mL (<=0.30)
[2016-08-18] MEDS ORDERED: Heparin 5000 units/ml inj IV ONE (03:15)
[2016-08-18] MEDS: Heparin 25,000u/D5W 500ml 500 ML IV SCH ×2 (03:33→14:57)
--- NOTE | 2016-08-18 03:48 | Consultation ---
DATE OF CONSULTATION: 08/17/2016 REFERRING PHYSICIAN: Vipin Delcid M.D. REASON FOR REFERRAL: Congestive heart failure with cardiomyopathy. HISTORY OF PRESENT ILLNESS: This is a young female unfortunately with history of nonischemic cardiomyopathy with amphetamine use, ejection fraction previously was . She presented to the hospital because of abdominal pain, nausea and vomiting. Previously, she had similar situation for which she was hospitalized at [facility] and was diagnosed with gastroenteritis. She has a history of blood clots. Her INR was adjusted. Coumadin dose was adjusted and she was subsequently seen in the [facility]. Information was obtained from discussion specifically with the patient and after discussion with her to review of the chart. She tells me that she was hospitalized at [facility] because of nausea and vomiting. She presented to the hospital because of nausea and vomiting as well and shortness of breath. She has occasional shortness of breath with activities. She walks long. She recently had few nights ago started with some nausea, vomiting and abdominal pain, and subsequently started having problems with falling asleep and becoming shortness of breath and presented to the hospital because of that similar situation apparently that she had at [facility]. She has occasional dizziness and lightheadedness. She also has occasional palpitations. She tells me that her heart issue started approximately two years ago and she has undergone a cardiac catheterization at [facility] and she did have no coronary disease. [facility] data reviewed looks like she has history of nonischemic cardiomyopathy with amphetamine use that she previously had 50% ejection fraction in May 2002. 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 [facility] data indicates that the patient was volume overload secondary to myopathy and amphetamine use and medication noncompliance, although she indicates that she has been compliant and apparently her nausea and vomiting resolved, she was diuresed with Lasix 20 mg daily and started on Coumadin. INR eventually was therapeutic at 2.1 upon discharge and she was instructed to have outpatient INR workup with her primary care physician. It appears that she has not been able to do that. She tells me that she has not been able to see her primary physician and she gets admitted to the hospital one place or the other because of her symptoms every two weeks. PAST MEDICAL HISTORY: Negative for history of heart attack, cancer, stroke, hepatitis, tuberculosis, asthma, or emphysema. No ulcers. No kidney, liver problems, thyroid problems, anemia, arthritis, or HIV. ALLERGIES: She has been previously told she is allergic to penicillin. SOCIAL HISTORY: She smokes two to three cigarettes per week. She says she used to smoke one pack per day. She claims that her last drug use was approximately six months ago. No alcohol use. REVIEW OF SYSTEMS: Gastrointestinal: The patient admits to have nausea, vomiting, and abdominal pain. No bloody stools or black tarry stools. Genitourinary: Negative. Pulmonary: Negative. Constitutional: Negative. PHYSICAL EXAMINATION: GENERAL: Shows a young female, in no apparent respiratory distress. NECK: Supple. No jugular venous distention. No abdominojugular reflux noted. LUNGS: Appear to be clear to auscultation and percussion. CARDIAC EXAMINATION: S1 is normal. S2 is normal. Regular rate and rhythm. No heaves. No thrills are noted. ABDOMEN: Soft and nontender. Positive bowel sounds. EXTREMITIES: Trace if any edema of the lower extremities. LABORATORY AND DIAGNOSTIC DATA: Her sodium is 139, potassium 4.0, chloride 97, bicarbonate 21, BUN 21, creatinine 1.2, and glucose of 119. Calcium is 9.2. Bilirubin of 1.5. AST is 24, ALT of 39, and alkaline phosphatase of 126. Troponin was 0.43. Total protein 7.2, albumin 3.9, and lipase of 22. White count of 4.9, subsequently 3.9, hemoglobin 12.1 subsequently 10.9, and platelet count of 160,000. INR is 1.4 and a PTT of 28. Urinalysis is 5 to 10 WBCs, 10 to 15 RBCs, and leukocyte esterase of 1+. HCG qualitative was negative. She has had a chest x-ray performed in the emergency room that showed cardiomegaly, no acute processes. Her abdominal CT shows mild right pleural effusion 6 x 3.6 cm mass in the right adnexa possibly, but not definitely an exophytic uterine fibroid. No acute abdominopelvic pathology, bilateral nonobstructive intrarenal calculi. Negative for evidence of hydro-cardiomegaly was noted. ASSESSMENT: 1. Acute on chronic congestive heart failure. 2. 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 3. 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 4. History of hypertension. 5. History of nausea, vomiting and abdominal pain. 6. History of amphetamine use. PLAN: Dr. Delcid, this patient was seen in cardiac consultation. The patient claims that she has been compliant with the medication that was administered. She has not been compliant with the recommendations for followup as outpatient with anticoagulation dose adjustment by her primary care physician. She should be back on her Lasix 20 mg daily, Coreg 3.125 mg a day as well as Lipitor. She is on Wellbutrin, iron sulfate, Isordil 30 mg daily, lisinopril 20 mg daily, Protonix, Aldactone 25 mg daily, and her Coumadin needs to be adjusted. She will be started on some Lovenox in the meantime, while her INR is subtherapeutic but it appears that at [facility] they felt that her INR was therapeutic with 5 mg of Coumadin, although that does not seem to be the case. Here she has received some 8 mg of Coumadin two nights before her discharge from [facility] to get her to a level of 2.1. Nevertheless, in the interim, she should be continued on some Lovenox. I will administer Coumadin at a higher dose to get her up to therapeutic levels faster and eventually she will that I have recommended that she follow up with her primary care physician to be referred to a refrigeration engine operator through her health plan so that all of these problems can be prevented from her readmission. Fransico Bnauelos M.D. DR: DARIEL JOB#: [id number] CC:
[2016-08-18 04:00] VITALS: BP 128/54
[2016-08-18 08:26] VITALS: BP 116/59
[2016-08-18] MEDS: Spironolactone 25mg tab ORAL SCH (09:00)
[2016-08-18] MEDS: Aspirin Baby 81mg ORAL SCH (09:00)
[2016-08-18] MEDS: Lisinopril 10mg tab ORAL SCH (09:00)
[2016-08-18 11:28] VITALS: BP 100/70
--- NOTE | 2016-08-18 12:19 | Diagnostic Imaging Report ---
Indication: Adnexal mass seen on recent CT Technique: Transabdominal images only. Endovaginal exam not performed, per patient request Comparison: Reference made to CT scan of 08/16/2016 Findings: Uterus measures 7 cm length by 4.7 cm AP. What appears be a calcified exophytic fibroid is seen to the right of the uterus, measures 6.5 x 4 cm in diameter. Presumably corresponds to the CT abnormality. Smaller adjacent exophytic fibroid measuring 2.8 cm is also demonstrated. The right ovary measures 2.9 cm length. The left ovary measures 1.7 cm length. No adnexal mass demonstrated. Endometrium measures 5 mm thick. No free cul-de-sac fluid. Impression: Limited exam, due to lack of endovaginal images. Recommend endovaginal imaging when patient able tolerate Apparent right adnexal mass seen on recent CT appears to be an exophytic calcified fibroid on ultrasound. Probable second smaller exophytic fibroid also noted, not clearly evident on CT Normal ovaries and endometrium
--- NOTE | 2016-08-18 13:26 | Pulmonology Progress Note ---
Assessment/Plan Problems: (1) Abdominal pain (2) Cardiomyopathy (3) Elevated troponin (4) ROSY (acute kidney injury) Assessment/Plan heparin IV on coumadine dc home when INR therapeutic Subjective Interval Events: abdominal pain resolved Allergies: Coded Allergies: PENICILLINS (Verified Allergy, Unknown, 08/16/16) Objective Last 24 Hour Vital Signs Date Time Temp Pulse Resp B/P Pulse Ox O2 Delivery O2 Flow Rate FiO2 08/18/16 12:00 82 08/18/16 11:28 98.2 86 18 100/70 96 Room Air 08/18/16 09:00 116/59 08/18/16 09:00 88 116/59 08/18/16 08:26 97.9 88 18 116/59 97 Room Air 08/18/16 08:00 77 08/18/16 07:14 86 20 Room Air 08/18/16 04:00 97.9 63 19 128/54 94 Room Air 08/18/16 04:00 84 08/18/16 00:00 81 08/18/16 00:00 98.1 87 20 115/65 100 Room Air 08/17/16 20:00 97.7 89 20 101/68 100 Room Air 08/17/16 20:00 85 08/17/16 19:57 93 106/69 08/17/16 19:25 93 18 Room Air 08/17/16 16:13 97.0 86 18 106/69 99 Room Air 08/17/16 16:00 89 Intake and Output 08/17/16 08/18/16 19:00 07:00 Intake Total 240 ml 166.287 ml Balance 240 ml 166.287 ml Intake Oral 240 ml IV Total 166.287 ml # Voids 3 1 Objective General Appearance: WD/WN HEENT: normocephalic, atraumatic Respiratory/Chest: chest wall non-tender, lungs clear Breasts: no masses Cardiovascular: normal peripheral pulses, normal rate, regular rhythm Abdomen: normal bowel sounds, soft, non tender, no organomegaly, non distended Genitourinary: normal external genitalia Skin: no rash, no lesions 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 Lymphatic: no neck adenopathy Musculoskeletal: normal muscle bulk Laboratory Tests 08/17/16 19:45: White Blood Count 4.1L, Red Blood Count 3.84L, Hemoglobin 10.7L, Hematocrit 33.7L, Mean Corpuscular Volume 88, Mean Corpuscular Hemoglobin 27.9, Mean Corpuscular Hemoglobin Concent 31.8L, Red Cell Distribution Width 18.0H, Platelet Count 155, Mean Platelet Volume 7.5, Neutrophils (%) (Auto) 47.9, Lymphocytes (%) (Auto) 42.6, Monocytes (%) (Auto) 7.0, Eosinophils (%) (Auto) 1.4, Basophils (%) (Auto) 1.1, Activated Partial Thromboplast Time 27 08/18/16 02:30: White Blood Count 3.7L, Red Blood Count 4.06L, Hemoglobin 11.1L, Hematocrit 35.1L, Mean Corpuscular Volume 86, Mean Corpuscular Hemoglobin 27.4, Mean Corpuscular Hemoglobin Concent 31.7L, Red Cell Distribution Width 18.7H, Platelet Count 166, Mean Platelet Volume 7.6, Neutrophils (%) (Auto) 44.6L, Lymphocytes (%) (Auto) 44.0, Monocytes (%) (Auto) 8.8, Eosinophils (%) (Auto) 1.3, Basophils (%) (Auto) 1.2, Activated Partial Thromboplast Time 54H, Prothrombin Time 14.5H, Prothromb Time International Ratio 1.4H, Sodium Level 138, Potassium Level 3.6, Chloride Level 98, Carbon Dioxide Level 27, Anion Gap 13, Blood Urea Nitrogen 18, Creatinine 1.2H, Estimat Glomerular Filtration Rate 59.8, Glucose Level 104, Calcium Level 8.6, Phosphorus Level 3.3, Magnesium Level 1.8, Total Bilirubin 0.6, Aspartate Amino Transf (AST/SGOT) 21, Alanine Aminotransferase (ALT/SGPT) 30, Alkaline Phosphatase 104, Troponin I 0.42*H, Total Protein 5.7L, Albumin 3.1L, Globulin 2.6, Albumin/Globulin Ratio 1.1 08/18/16 09:45: Activated Partial Thromboplast Time 70H Current Medications Medications (Trade) Dose Ordered Sig/Frantz Route PRN Reason Start Time Stop Time Status Last Admin Dose Admin Acetaminophen (Tylenol) 650 mg Q4H PRN ORAL T>100.5 08/16/16 18:00 09/15/16 17:59 Albuterol/ Ipratropium (DuoNeb 0.5-3(2.5)mg/3ml) 3 ml Q4H PRN HHN Shortness of Breath 08/16/16 18:00 08/21/16 17:59 Aspirin (ASA) 162 mg DAILY ORAL 08/17/16 09:00 09/16/16 08:59 08/18/16 09:00 Atorvastatin Calcium (Lipitor) 80 mg BEDTIME ORAL 08/16/16 21:00 09/15/16 20:59 08/17/16 19:57 Bupropion HCl (Wellbutrin) 100 mg THREE TIMES A DAY ORAL 08/16/16 20:00 09/15/16 19:59 08/18/16 13:09 Carvedilol (Coreg) 3.125 mg EVERY 12 HOURS ORAL 08/16/16 21:00 09/15/16 20:59 08/18/16 09:00 Diltiazem HCl (Cardizem) 10 mg EVERY HOUR PRN IV heart rate more than 120 08/16/16 18:00 09/15/16 17:59 Enalaprilat (Vasotec) 2.5 mg Q6H PRN IV sbp more than 160 08/16/16 18:00 09/15/16 17:59 Furosemide (Lasix) 20 mg DAILY IV 08/17/16 19:30 09/16/16 19:29 08/18/16 08:59 Heparin Sodium/ Dextrose (Heparin) 500 ml @ 23.587 mls/ hr adjust per protocol IV 08/18/16 03:15 09/17/16 03:14 08/18/16 03:33 Lisinopril (Zestril) 10 mg DAILY ORAL 08/17/16 09:00 09/16/16 08:59 08/18/16 09:00 Morphine Sulfate (Morphine Sulfate) 2 mg Q4H PRN IVP Severe Pain (Pain Scale 7-10) 08/16/16 18:00 08/23/16 17:59 08/17/16 07:46 Nitroglycerin (Ntg) 0.4 mg Q5MIN X 3 DOSES PRN SL Prn Chest Pain 08/16/16 18:15 09/15/16 18:14 Ondansetron HCl (Zofran) 4 mg Q6H PRN IVP Nausea & Vomiting 08/16/16 18:00 09/15/16 17:59 08/17/16 13:25 Pantoprazole (Protonix) 40 mg DAILY ORAL 08/17/16 09:00 09/16/16 08:59 08/18/16 09:00 Polyethylene Glycol (Miralax) 17 gm DAILYPRN PRN ORAL Constipation 08/16/16 18:00 09/15/16 17:59 Spironolactone 25 mg 25 mg DAILY ORAL 08/17/16 19:30 09/16/16 19:29 08/18/16 09:00 Temazepam (Restoril) 15 mg HSPRN PRN ORAL Insomnia 08/16/16 21:00 08/23/16 20:59 Warfarin Sodium (Coumadin per pharmacy) 1 ea DAILY PRN MISC Per rx protocol 08/17/16 13:15 09/16/16 13:14 Warfarin Sodium (Coumadin) 7.5 mg COUMADIN ONCE ORAL 08/18/16 17:00 08/18/16 17:01 ADITI ANDERSON Aug 18, 2016 13:26
--- NOTE | 2016-08-18 15:12 | Cardiology Report ---
APPROVED REPORT EXAM: Two-dimensional and M-mode echocardiogram with Doppler and color Doppler. INDICATION Left Ventricular Function M-Mode DIMENSIONS IVSd1.0 (0.7-1.1cm)Left Atrium (MM)3.9 (1.6-4.0cm) LVDd5.3 (3.5-5.6cm)Aortic Root2.3 (2.0-3.7cm) PWd0.8 (0.7-1.1cm)Aortic Cusp Exc.1.7 (1.5-2.0cm) LVDs5.2 (2.5-4.0cm) PWs1.0 cm DILATED left ventricular chamber size. Global left ventricular hypokinesis. Left ventricular ejection fraction estimated to be 10-15 %. No evidence of ventricular hypertrophy. No evidence of pericardial fat or effusion. MODERATE bi-atrial enlargement. Left atrial chamber size is within normal limits. Mild focal aortic valve sclerosis with adequate cusp excursion. Mildly thickened mitral valve leaflets with normal excursion. Mild mitral annulus and aortic root calcification. Normal pulmonic valve structure. Normal tricuspid valve structure. A color flow and spectral Doppler study was performed and revealed: No aortic regurgitation. Moderate mitral regurgitation. Left ventricular diastolic function grade III. Moderate tricuspid regurgitation. Tricuspid systolic velocities suggests peak right ventricular systolic pressure of 72 mmHg, consistent with severe pulmonary hypertension. Mild pulmonic regurgitation present.
--- NOTE | 2016-08-18 15:24 | General Progress Note ---
Assessment/Plan Problem List: (1) LFTs abnormal ICD Codes: R79.89 - Other specified abnormal findings of blood chemistry SNOMED: 575394199 (2) Anemia ICD Codes: D64.9 - Anemia, unspecified SNOMED: 774207239 (3) Elevated troponin ICD Codes: R79.89 - Other specified abnormal findings of blood chemistry SNOMED: 659898741, 436146346 (4) Cardiomyopathy ICD Codes: I42.9 - Cardiomyopathy, unspecified SNOMED: 77958583 (5) Abdominal pain ICD Codes: R10.9 - Unspecified abdominal pain SNOMED: 16392437 Qualifiers: Qualified Codes: R10.33 - Periumbilical pain Assessment/Plan fu cardiology on heparin drip pelvic us reviewed fu Subjective ROS Limited/Unobtainable: Yes Allergies: Coded Allergies: PENICILLINS (Verified Allergy, Unknown, 08/16/16) Subjective no event Objective Last 24 Hour Vital Signs Date Time Temp Pulse Resp B/P Pulse Ox O2 Delivery O2 Flow Rate FiO2 08/18/16 12:00 82 08/18/16 11:28 98.2 86 18 100/70 96 Room Air 08/18/16 09:00 116/59 08/18/16 09:00 88 116/59 08/18/16 08:26 97.9 88 18 116/59 97 Room Air 08/18/16 08:00 77 08/18/16 07:14 86 20 Room Air 08/18/16 04:00 97.9 63 19 128/54 94 Room Air 08/18/16 04:00 84 08/18/16 00:00 81 08/18/16 00:00 98.1 87 20 115/65 100 Room Air 08/17/16 20:00 97.7 89 20 101/68 100 Room Air 08/17/16 20:00 85 08/17/16 19:57 93 106/69 08/17/16 19:25 93 18 Room Air 08/17/16 16:13 97.0 86 18 106/69 99 Room Air 08/17/16 16:00 89 Intake and Output 08/17/16 08/18/16 19:00 07:00 Intake Total 240 ml 166.287 ml Balance 240 ml 166.287 ml Intake Oral 240 ml IV Total 166.287 ml # Voids 3 1 Laboratory Tests 08/17/16 19:45: White Blood Count 4.1L, Red Blood Count 3.84L, Hemoglobin 10.7L, Hematocrit 33.7L, Mean Corpuscular Volume 88, Mean Corpuscular Hemoglobin 27.9, Mean Corpuscular Hemoglobin Concent 31.8L, Red Cell Distribution Width 18.0H, Platelet Count 155, Mean Platelet Volume 7.5, Neutrophils (%) (Auto) 47.9, Lymphocytes (%) (Auto) 42.6, Monocytes (%) (Auto) 7.0, Eosinophils (%) (Auto) 1.4, Basophils (%) (Auto) 1.1, Activated Partial Thromboplast Time 27 08/18/16 02:30: White Blood Count 3.7L, Red Blood Count 4.06L, Hemoglobin 11.1L, Hematocrit 35.1L, Mean Corpuscular Volume 86, Mean Corpuscular Hemoglobin 27.4, Mean Corpuscular Hemoglobin Concent 31.7L, Red Cell Distribution Width 18.7H, Platelet Count 166, Mean Platelet Volume 7.6, Neutrophils (%) (Auto) 44.6L, Lymphocytes (%) (Auto) 44.0, Monocytes (%) (Auto) 8.8, Eosinophils (%) (Auto) 1.3, Basophils (%) (Auto) 1.2, Activated Partial Thromboplast Time 54H, Prothrombin Time 14.5H, Prothromb Time International Ratio 1.4H, Sodium Level 138, Potassium Level 3.6, Chloride Level 98, Carbon Dioxide Level 27, Anion Gap 13, Blood Urea Nitrogen 18, Creatinine 1.2H, Estimat Glomerular Filtration Rate 59.8, Glucose Level 104, Calcium Level 8.6, Phosphorus Level 3.3, Magnesium Level 1.8, Total Bilirubin 0.6, Aspartate Amino Transf (AST/SGOT) 21, Alanine Aminotransferase (ALT/SGPT) 30, Alkaline Phosphatase 104, Troponin I 0.42*H, Total Protein 5.7L, Albumin 3.1L, Globulin 2.6, Albumin/Globulin Ratio 1.1 08/18/16 09:45: Activated Partial Thromboplast Time 70H Height (Feet): 5 Height (Inches): 3.00 Weight (Pounds): 130 General Appearance: alert EENT: normal ENT inspection Neck: supple Cardiovascular: normal rate Respiratory/Chest: decreased breath sounds Abdomen: normal bowel sounds, non tender, soft Extremities: non-tender JORGE MCKAY Aug 18, 2016 15:24
[2016-08-18 16:00] VITALS: BP 111/63
[2016-08-18 16:04] LABS: CA 27.29 <3.5 U/mL (0.0-38.6)
[2016-08-18] MEDS ORDERED: Warfarin Sodium 7.5mg ORAL ONE (17:00)
--- NOTE | 2016-08-18 19:15 | Cardiology Progress Note ---
Assessment/Plan Assessment/Plan 1. Acute on chronic congestive heart failure. 2. 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 3. 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 4. History of hypertension. 5. History of nausea, vomiting and abdominal pain. 6. History of amphetamine use. 7. 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 more than 6 mg oc Coumadin at home with instruction ot go to have inr checked at pm,d office on laix iv on coreg and acei rehana increase acei dose Subjective Cardiovascular: Denies: chest pain, lightheadedness Respiratory: Reports: shortness of breath Gastrointestinal/Abdominal: Reports: abdominal pain Genitourinary: Denies: burning Objective Last 24 Hour Vital Signs Date Time Temp Pulse Resp B/P Pulse Ox O2 Delivery O2 Flow Rate FiO2 08/18/16 16:00 95 08/18/16 16:00 98.1 82 18 111/63 100 Room Air 08/18/16 12:00 82 08/18/16 11:28 98.2 86 18 100/70 96 Room Air 08/18/16 09:00 116/59 08/18/16 09:00 88 116/59 08/18/16 08:26 97.9 88 18 116/59 97 Room Air 08/18/16 08:00 77 08/18/16 07:14 86 20 Room Air 08/18/16 04:00 97.9 63 19 128/54 94 Room Air 08/18/16 04:00 84 08/18/16 00:00 81 08/18/16 00:00 98.1 87 20 115/65 100 Room Air 08/17/16 20:00 97.7 89 20 101/68 100 Room Air 08/17/16 20:00 85 08/17/16 19:57 93 106/69 08/17/16 19:25 93 18 Room Air General Appearance: alert Neck: supple Cardiovascular: normal rate, regular rhythm Respiratory/Chest: lungs clear, normal breath sounds Abdomen: soft Extremities: no swelling Intake and Output 08/17/16 08/18/16 19:00 07:00 Intake Total 240 ml 166.287 ml Balance 240 ml 166.287 ml Intake Oral 240 ml IV Total 166.287 ml # Voids 3 1 Laboratory Tests Test 08/17/16 19:45 08/18/16 02:30 08/18/16 09:45 White Blood Count 4.1 K/UL (4.8-10.8) L 3.7 K/UL (4.8-10.8) L Red Blood Count 3.84 M/UL (4.20-5.40) L 4.06 M/UL (4.20-5.40) L Hemoglobin 10.7 G/DL (12.0-16.0) L 11.1 G/DL (12.0-16.0) L Hematocrit 33.7 % (37.0-47.0) L 35.1 % (37.0-47.0) L Mean Corpuscular Volume 88 FL (80-99) 86 FL (80-99) Mean Corpuscular Hemoglobin 27.9 PG (27.0-31.0) 27.4 PG (27.0-31.0) Mean Corpuscular Hemoglobin Concent 31.8 G/DL (32.0-36.0) L 31.7 G/DL (32.0-36.0) L Red Cell Distribution Width 18.0 % (11.6-14.8) H 18.7 % (11.6-14.8) H Platelet Count 155 K/UL (150-450) 166 K/UL (150-450) Mean Platelet Volume 7.5 FL (6.5-10.1) 7.6 FL (6.5-10.1) Neutrophils (%) (Auto) 47.9 % (45.0-75.0) 44.6 % (45.0-75.0) L Lymphocytes (%) (Auto) 42.6 % (20.0-45.0) 44.0 % (20.0-45.0) Monocytes (%) (Auto) 7.0 % (1.0-10.0) 8.8 % (1.0-10.0) Eosinophils (%) (Auto) 1.4 % (0.0-3.0) 1.3 % (0.0-3.0) Basophils (%) (Auto) 1.1 % (0.0-2.0) 1.2 % (0.0-2.0) Activated Partial Thromboplast Time 27 SEC (23-33) 54 SEC (23-33) H 70 SEC (23-33) H Prothrombin Time 14.5 SEC (9.30-11.50) H Prothromb Time International Ratio 1.4 (0.9-1.1) H Sodium Level 138 mEQ/L (135-145) Potassium Level 3.6 mEQ/L (3.4-4.9) Chloride Level 98 mEQ/L (98-107) Carbon Dioxide Level 27 mEQ/L (20-30) Anion Gap 13 (5-15) Blood Urea Nitrogen 18 mg/dL (7-23) Creatinine 1.2 mg/dL (0.5-0.9) H Estimat Glomerular Filtration Rate 59.8 mL/min (>60) Glucose Level 104 mg/dL (74-106) Calcium Level 8.6 mg/dL (8.6-10.2) Phosphorus Level 3.3 mg/dL (2.5-4.8) Magnesium Level 1.8 mg/dL (1.7-2.5) Total Bilirubin 0.6 mg/dL (0.0-1.2) Aspartate Amino Transf (AST/SGOT) 21 U/L (5-40) Alanine Aminotransferase (ALT/SGPT) 30 U/L (3-33) Alkaline Phosphatase 104 U/L (35-104) Troponin I 0.42 ng/mL (<=0.30) *H Total Protein 5.7 g/dL (6.6-8.7) L Albumin 3.1 g/dL (3.5-5.2) L Globulin 2.6 g/dL Albumin/Globulin Ratio 1.1 (1.0-2.7) JOAN BARRY Aug 18, 2016 19:15
[2016-08-18] MEDS: Morphine Sulfate 2mg/ml Inj IVP PRN (19:59)
[2016-08-18 20:00] VITALS: BP 126/67
[2016-08-18] MEDS: Atorvastatin 80mg tab ORAL SCH (20:55)
[2016-08-19 00:35] VITALS: BP 147/56
[2016-08-19 04:03] VITALS: BP 112/73
[2016-08-19 05:32] LABS: INR 1.8 (0.9-1.1)
[2016-08-19 08:00] VITALS: BP 136/70
[2016-08-19 08:49] LABS: CA 125 110.1 U/mL (0.0-38.1); CA15-3 9.6 U/mL (0.0-25.0)
[2016-08-19] MEDS ORDERED: Lisinopril 10mg tab ORAL SCH (09:00)
[2016-08-19] MEDS: Aspirin Baby 81mg ORAL SCH (09:07)
[2016-08-19] MEDS: Spironolactone 25mg tab ORAL SCH (09:09)
--- NOTE | 2016-08-19 10:26 | General Progress Note ---
Assessment/Plan Problem List: (1) LFTs abnormal ICD Codes: R79.89 - Other specified abnormal findings of blood chemistry SNOMED: 952151272 (2) Anemia ICD Codes: D64.9 - Anemia, unspecified SNOMED: 290282358 (3) Elevated troponin ICD Codes: R79.89 - Other specified abnormal findings of blood chemistry SNOMED: 305470924, 631430680 (4) Cardiomyopathy ICD Codes: I42.9 - Cardiomyopathy, unspecified SNOMED: 31851418 (5) Abdominal pain ICD Codes: R10.9 - Unspecified abdominal pain SNOMED: 00673212 Qualifiers: Qualified Codes: R10.33 - Periumbilical pain Assessment/Plan fu cardiology repeat cbc in am hold GI procedures for now pelvic us reviewed fu Subjective ROS Limited/Unobtainable: Yes Allergies: Coded Allergies: PENICILLINS (Verified Allergy, Unknown, 08/16/16) Subjective no event Objective Last 24 Hour Vital Signs Date Time Temp Pulse Resp B/P Pulse Ox O2 Delivery O2 Flow Rate FiO2 08/19/16 09:09 136/70 08/19/16 09:09 59 136/70 08/19/16 08:00 84 08/19/16 08:00 97.9 59 18 136/70 100 Room Air 08/19/16 07:18 91 18 Room Air 08/19/16 04:03 98.6 78 18 112/73 98 Room Air 08/19/16 04:00 87 08/19/16 00:35 98.8 67 19 147/56 98 Room Air 08/19/16 00:00 89 08/18/16 20:55 88 122/61 08/18/16 20:00 95.9 95 19 126/67 100 Room Air 08/18/16 20:00 78 08/18/16 19:00 82 17 Room Air 08/18/16 16:00 95 08/18/16 16:00 98.1 82 18 111/63 100 Room Air 08/18/16 12:00 82 08/18/16 11:28 98.2 86 18 100/70 96 Room Air Intake and Output 08/18/16 08/19/16 19:00 07:00 Intake Total 546.631 ml 188.696 ml Balance 546.631 ml 188.696 ml Intake Oral 240 ml IV Total 306.631 ml 188.696 ml # Voids 2 1 Laboratory Tests 08/19/16 04:00: Prothrombin Time 19.0H, Prothromb Time International Ratio 1.8H, Activated Partial Thromboplast Time 83H Height (Feet): 5 Height (Inches): 3.00 Weight (Pounds): 130 General Appearance: alert EENT: normal ENT inspection Neck: supple Cardiovascular: normal rate Respiratory/Chest: decreased breath sounds Abdomen: normal bowel sounds, non tender, soft Extremities: non-tender JORGE MCKAY Aug 19, 2016 10:26
[2016-08-19 12:00] VITALS: BP 105/72
[2016-08-19] MEDS: Heparin 25,000u/D5W 500ml 500 ML IV SCH (13:36)
--- NOTE | 2016-08-19 14:49 | Pulmonology Progress Note ---
Assessment/Plan Problems: (1) Abdominal pain (2) Cardiomyopathy (3) Elevated troponin (4) ROSY (acute kidney injury) Assessment/Plan heparin IV on coumadine INR is 1.8 today pt wants to go home Subjective ROS Limited/Unobtainable: No Interval Events: no new complains Allergies: Coded Allergies: PENICILLINS (Verified Allergy, Unknown, 08/16/16) Objective Last 24 Hour Vital Signs Date Time Temp Pulse Resp B/P Pulse Ox O2 Delivery O2 Flow Rate FiO2 08/19/16 12:00 86 08/19/16 12:00 98.1 81 18 105/72 97 Room Air 08/19/16 09:09 136/70 08/19/16 09:09 59 136/70 08/19/16 08:00 84 08/19/16 08:00 97.9 59 18 136/70 100 Room Air 08/19/16 07:18 91 18 Room Air 08/19/16 04:03 98.6 78 18 112/73 98 Room Air 08/19/16 04:00 87 08/19/16 00:35 98.8 67 19 147/56 98 Room Air 08/19/16 00:00 89 08/18/16 20:55 88 122/61 08/18/16 20:00 95.9 95 19 126/67 100 Room Air 08/18/16 20:00 78 08/18/16 19:00 82 17 Room Air 08/18/16 16:00 95 08/18/16 16:00 98.1 82 18 111/63 100 Room Air Intake and Output 08/18/16 08/19/16 19:00 07:00 Intake Total 546.631 ml 188.696 ml Balance 546.631 ml 188.696 ml Intake Oral 240 ml IV Total 306.631 ml 188.696 ml # Voids 2 1 Objective General Appearance: WD/WN HEENT: normocephalic, atraumatic Respiratory/Chest: chest wall non-tender, lungs clear Breasts: no masses Cardiovascular: normal peripheral pulses, normal rate, regular rhythm Abdomen: normal bowel sounds, soft, non tender, no organomegaly, non distended Genitourinary: normal external genitalia Skin: no rash, no lesions 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 Lymphatic: no neck adenopathy Musculoskeletal: normal muscle bulk Laboratory Tests 08/19/16 04:00: Prothrombin Time 19.0H, Prothromb Time International Ratio 1.8H, Activated Partial Thromboplast Time 83H Current Medications Medications (Trade) Dose Ordered Sig/Frantz Route PRN Reason Start Time Stop Time Status Last Admin Dose Admin Acetaminophen (Tylenol) 650 mg Q4H PRN ORAL T>100.5 08/16/16 18:00 09/15/16 17:59 Albuterol/ Ipratropium (DuoNeb 0.5-3(2.5)mg/3ml) 3 ml Q4H PRN HHN Shortness of Breath 08/16/16 18:00 08/21/16 17:59 Aspirin (ASA) 162 mg DAILY ORAL 08/17/16 09:00 09/16/16 08:59 08/19/16 09:07 Atorvastatin Calcium (Lipitor) 80 mg BEDTIME ORAL 08/16/16 21:00 09/15/16 20:59 08/18/16 20:55 Bupropion HCl (Wellbutrin) 100 mg THREE TIMES A DAY ORAL 08/16/16 20:00 09/15/16 19:59 08/19/16 13:34 Carvedilol (Coreg) 3.125 mg EVERY 12 HOURS ORAL 08/16/16 21:00 09/15/16 20:59 08/19/16 09:09 Diltiazem HCl (Cardizem) 10 mg EVERY HOUR PRN IV heart rate more than 120 08/16/16 18:00 09/15/16 17:59 Enalaprilat (Vasotec) 2.5 mg Q6H PRN IV sbp more than 160 08/16/16 18:00 09/15/16 17:59 Furosemide (Lasix) 20 mg DAILY IV 08/17/16 19:30 09/16/16 19:29 08/19/16 09:08 Heparin Sodium/ Dextrose (Heparin) 500 ml @ 23.587 mls/ hr adjust per protocol IV 08/18/16 03:15 09/17/16 03:14 08/19/16 13:36 Lisinopril (Zestril) 10 mg BID ORAL 08/19/16 09:00 09/18/16 08:59 08/19/16 09:09 Morphine Sulfate (Morphine Sulfate) 2 mg Q4H PRN IVP Severe Pain (Pain Scale 7-10) 08/16/16 18:00 08/23/16 17:59 08/18/16 19:59 Nitroglycerin (Ntg) 0.4 mg Q5MIN X 3 DOSES PRN SL Prn Chest Pain 08/16/16 18:15 09/15/16 18:14 Ondansetron HCl (Zofran) 4 mg Q6H PRN IVP Nausea & Vomiting 08/16/16 18:00 09/15/16 17:59 08/18/16 19:55 Pantoprazole (Protonix) 40 mg DAILY ORAL 08/17/16 09:00 09/16/16 08:59 08/19/16 09:07 Polyethylene Glycol (Miralax) 17 gm DAILYPRN PRN ORAL Constipation 08/16/16 18:00 09/15/16 17:59 Spironolactone 25 mg 25 mg DAILY ORAL 08/17/16 19:30 09/16/16 19:29 08/19/16 09:09 Temazepam (Restoril) 15 mg HSPRN PRN ORAL Insomnia 08/16/16 21:00 08/23/16 20:59 Warfarin Sodium (Coumadin per pharmacy) 1 ea DAILY PRN MISC Per rx protocol 08/17/16 13:15 09/16/16 13:14 Warfarin Sodium (Coumadin) 6 mg COUMADIN ONCE ORAL 08/19/16 17:00 08/19/16 17:01 ADITI ANDERSON Aug 19, 2016 14:49
[2016-08-19] MEDS ORDERED: Warfarin Sodium 3mg ORAL ONE (17:00)
--- NOTE | 2016-08-22 13:40 | Discharge Summary ---
Discharge Summary Hospital Course Date of Admission Aug 16, 2016 at 15:40 Date of Discharge Aug 19, 2016 at 16:45 Admitting Diagnosis ABD PAIN, NSTEMI HPI Lexie Mcnulty is a 41 year old female who was admitted on Aug 16, 2016 at 15:40 for Abdominal Pain Nstemi Hospital Course dc summary #[id number] Discharge Medications Continued Medications: Atorvastatin Calcium* (Atorvastatin Calcium*) 40 Mg Tablet 80 MG ORAL BEDTIME, TAB Bupropion Hcl* (Bupropion Hcl*) 100 Mg Tablet 100 MG ORAL THREE TIMES A DAY, TAB Carvedilol* (Carvedilol*) 3.125 Mg Tablet 3.125 MG ORAL EVERY 12 HOURS, TAB Furosemide* (Lasix*) 20 Mg Tablet 20 MG ORAL DAILY, TAB Isosorbide Mononitrate (Isosorbide Mononitrate Er) 30 Mg Tab.er.24h 30 MG PO DAILY, TAB Lisinopril (Lisinopril*) 20 Mg Tablet 10 MG ORAL DAILY, TAB Pantoprazole* (Pantoprazole*) 40 Mg Tablet.dr 40 MG ORAL DAILY, TAB Spironolact/Hydrochlorothiazid (Spironolactone-Hctz 25-25 Tab) 1 Each Tablet 1 TAB ORAL DAILY, TAB Warfarin Sod* (Warfarin Sod*) 5 Mg Tablet 5 MG ORAL DAILY, TAB Discharge Condition Upon Discharge: stable Discharge Disposition Patient was discharged to Home () Discharge Diagnoses: Discharge Instructions Discharge Instructions Special Instructions I have been assigned to complete a D/C Summary on this account. I was not involved in the patient management Amanda Ely NP ([facility]) Aug 22, 2016 13:39
--- NOTE | 2016-08-23 03:38 | Discharge Summary 2 SIG ---
DATE OF ADMISSION: 08/16/2016 DATE OF DISCHARGE: 08/19/2016 REASON FOR HOSPITALIZATION: 41-year-old female, came to the emergency room complaining of sharp intermittent periumbilical, nonradiating, 7/10, abdominal pain for three days associated with nausea and vomiting. Denied fever, chills, diarrhea, or urinary complaints. She was not able to take any medication due to the above. She denied history of kidney stones. Denied chest pain, shortness of breath, or pleuritic chest pain. 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 In the emergency room, the patient was normotensive. Pulse oximetry was stable on the room air. Afebrile. EKG shows tachycardia with premature ventricular contraction, but no evidence of ischemia. Troponin minimally elevated at 0.43. Serum creatinine 1.1. Noted elevated total bilirubin and AST. Chest x-ray revealed no acute cardiopulmonary disease. The patient admitted for further management. ADMITTING DIAGNOSES: 1. Abdominal pain. 2. Elevated troponin. 3. Nonischemic cardiomyopathy. 4. Acute kidney injury. HOSPITAL STAY: The patient admitted to telemetry floor. Serial troponin were monitored. Cardiology consult was requested. Troponin were slightly elevated at 0.43, 0.51, 0.54, and 0.42. Per Cardiology, she had minimal troponin elevation in the past. Echocardiogram revealed ejection fraction 10% to 15% and right ventricular systolic pressure of 72 consistent with severe pulmonary hypertension as well as evidence of valvular heart disease with moderate mitral regurgitation and moderate tricuspid regurgitation. The patient with a known history of amphetamine abuse. INR was subtherapeutic -1.7. The patient started on heparin drip and Coumadin to bridge to therapeutic INR. The patient needs to be on Coumadin due to the history of left ventricular thrombus, left internal carotid artery thrombus, and superior mesenteric artery thrombus. The patient noncompliant with anticoagulation therapy in the past. CT abdomen and pelvis revealed 6 x 3.6 cm mass in the right adnexal region possibly but not definitely exophytic uterine fibroids, but could represent a solid ovarian mass. Subsequently, pelvic ultrasound was done which revealed that apparent right adnexal mass seen on recent CT appeared to be exophytic calcified fibroids on ultrasound. Probable second smaller exophytic fibroids noted, not clearly evident on CT. Normal ovaries. Tumor markers revealed elevated CA-125 of 100 with a normal CA 15/3, CA-19/9 and CA 27/29. GI followed patient as well. GI decided to hold any GI procedure at this time. Initially elevated ALT, subsequently down to normal. Evidence of mild anemia. No trend down. The patient was recommended to see [facility] on outpatient basis due to the elevated CA-125. As per the log deckman, he recommended medical management of nonischemic cardiomyopathy with beta-lavon, diuretic, WILMA inhibitor, Lasix, and Aldactone. Blood pressure was stable with the current regimen. The patient needs to follow up with PMD for Coumadin dosing, that was explained in detail to the patient. The patient will follow up with the primary doctor. GI prophylaxis provided. The patient was counseled on abstinence from the street drugs. The patient was also counseled on compliance with medication regimen. DISCHARGE DIAGNOSES: 1. Acute on chronic systolic congestive heart failure. 2. Nonischemic cardiomyopathy secondary to amphetamine use. 3. History of left ventricle thrombus, left internal carotid artery thrombosis, and superior mesenteric artery thrombosis, on anticoagulation. 4. Hypertension . 5. Severe pulmonary hypertension. 6. Valvular heart disease; moderate mitral regurgitation, moderate tricuspid regurgitation. 7. Uterine fibroids. 8. Elevated CA-125. 9. Mild anemia. 10. Elevated transaminase, resolved . 11. Abdominal pain, resolved. DISCHARGE MEDICATIONS: See medication reconciliation list. DISCHARGE INSTRUCTIONS: The patient to follow up with the primary medical doctor for further management as well as for the Coumadin dosing. The patient to follow up with [facility] for elevated CA-125. Vipin Delcid M.D. I have been assigned to dictate discharge summary on this account and I was not involved in the patient's management. Amanda Yostthierry N.P. DR: Bryan JOB#: [id number] CC: DAVIN
== END 2016-08-19 16:45 | disposition home or self-care (01) | DRG 194 ==
LOC: EDBD 13:52 → EMR 14:30 → EDBEDREQ 15:18 → 2E 15:40 → EDBEDREQ 16:11
DX: I11.0 Hypertensive heart disease with heart failure (principal); N17.9 Acute kidney failure, unspecified; I42.9 Cardiomyopathy, unspecified; I08.1 Rheumatic disorders of both mitral and tricuspid valves; I27.2 Other secondary pulmonary hypertension; I50.23 Acute on chronic systolic (congestive) heart failure; D64.9 Anemia, unspecified; D25.9 Leiomyoma of uterus, unspecified; F15.988 Other stimulant use, unspecified with other stimulant-induced disorder; Z88.0 Allergy status to penicillin
CPT/HCPCS: 36415; 71010; 74177; 76856; 80053; 80061; 81003; 81025; 82248; 83690; 83735; 84100; 84443; 84484; 85025; 85610; 85730; 86140; 86300; 86301; 86304; 93306; 94664; J2405